=== PATIENT | male | born 1970 | race Caucasian/White ===

== ENCOUNTER 2022-12-01 13:00 | Emergency (ER) | payer MEDICAID ==
[~2022-12-01] VITALS: Ht 170.2 cm; Wt 75.5 kg
[2022-12-01 13:34] VITALS: BP 152/106
[2022-12-01] MEDS ORDERED: KETOROLAC 30 MG/ML VIAL IM ONE (14:25)
[2022-12-01] MEDS ORDERED: LIDOCAINE 5% 1 EA PATCH TP SCH (14:25)
[2022-12-01] MEDS ORDERED: ACET-10509 PO (14:50)
[2022-12-01] MEDS ORDERED: NAPR-1704 PO (14:50)
[2022-12-01] MEDS ORDERED: ACET-5629 PO (14:50)
[2022-12-01] MEDS ORDERED: LID5T TP (14:50)
[2022-12-01] MEDS ORDERED: DICL20GE TP (14:50)
[2022-12-01 15:20] VITALS: BP 132/89
== END 2022-12-01 15:20 | disposition home or self-care (01) ==
LOC: MED 13:00
DX: S49.91XA Unspecified injury of right shoulder and upper arm, initial encounter (principal); M65.231 Calcific tendinitis, right forearm; X58.XXXA Exposure to other specified factors, initial encounter; Y93.89 Activity, other specified; Y92.89 Other specified places as the place of occurrence of the external cause; Y99.8 Other external cause status
CPT/HCPCS: 29125; 73030; 73110; 96372; 99284; J1885

== ENCOUNTER 2022-12-15 12:37 | Emergency (ER) | payer MEDICAID ==
[~2022-12-15] VITALS: Ht 170.2 cm; Wt 73.5 kg
[~2022-12-15 12:37] MED LIST: ACET-10509 PO; ACET-5629 PO; DICL20GE TP; LID5T TP; NAPR-1704 PO
[2022-12-15 12:44] VITALS: BP 146/84
[2022-12-15] MEDS ORDERED: KETOROLAC 30 MG/ML VIAL IM ONE (13:55)
[2022-12-15] MEDS ORDERED: DICL20GE TP ×2 (13:57→14:00)
[2022-12-15] MEDS ORDERED: NAPR-1704 PO ×2 (13:57→14:00)
[2022-12-15 14:15] VITALS: BP 146/84
--- NOTE | 2022-12-15 14:15 | NUR ---
Patient discharged with v/s stable. Written and verbal after care instructions given and explained. Patient alert, oriented and verbalized understanding of instructions. Ambulatory with steady gait. All questions addressed prior to discharge. ID band removed. Patient advised to follow up with PMD. Rx of DEREK MENDEZ (SCRIPT) given. Patient educated on indication of medication including possible reaction and side effects. Opportunity to ask questions provided and answered.
== END 2022-12-15 14:15 | disposition home or self-care (01) ==
LOC: MED 12:37
DX: M19.011 Primary osteoarthritis, right shoulder (principal); Z79.899 Other long term (current) drug therapy; Z79.1 Long term (current) use of non-steroidal anti-inflammatories (NSAID)
CPT/HCPCS: 96372; 99283; J1885

== ENCOUNTER 2023-04-23 20:40 | Emergency (ER) | payer MEDICAID ==
[~2023-04-23] VITALS: Ht 185.4 cm; Wt 74.8 kg
--- NOTE | 2023-04-23 20:41 | NUR ---
pt. to bed 03
--- NOTE | 2023-04-23 20:45 | NUR ---
ERMD AT BEDSIDE EXAMINING PT
--- NOTE | 2023-04-23 21:00 | NUR ---
PATIENT PRESENTS TO ED WITH SYNCOPAL EPISODE. SON STATES PT DUNKED HIS HEAD IN AN ICE BATH AND FAINTED AFTER. DENIES N/V/D; SKIN IS PINK/WARM/DRY; GCS 15, AAOX4 WITH EVEN AND STEADY GAIT; HR EVEN AND REGULAR; PT DENIES ANY FEVER, CP, SOB, OR COUGH AT THIS TIME; PATIENT STATES PAIN OF 0/10 AT THIS TIME; VSS; PATIENT POSITIONED FOR COMFORT; HOB ELEVATED; BEDRAILS UP X2; BED DOWN. ER MD AWARE OF PT STATUS.
[2023-04-23 21:05] VITALS: BP 151/103; PULSE 91; RESP 13; TEMP 98; O2SAT 95
[2023-04-23 21:35] LABS: BASOPHILS % (AUTO) 0.2 % (0.0-2.0); EOSINOPHILS # (AUTO) 0.1 K/uL (0-0.4); EOSINOPHILS % (AUTO) 1.3 % (0.0-4.0); HEMATOCRIT 37.5 % (36-52); HEMOGLOBIN 13.2 g/dL (12.0-18.0); LYMPHOCYTES # (AUTO) 1.7 K/uL (2.0-11.5); LYMPHOCYTES % (AUTO) 31.4 % (20.5-51.1); MEAN CORPUSCULAR HEMOGLOBIN 31 pg (27-31); MEAN CORPUSCULAR HGB CONC 35 g/dL (33-37); MONOCYTES # (AUTO) 0.4 K/uL (0.8-1.0); MONOCYTES % (AUTO) 8.4 % (1.7-9.3); NEUTROPHILS # (AUTO) 3.1 K/uL (1.8-7.7); NEUTROPHILS % (AUTO) 58.7 % (42.2-75.2); PLATELET COUNT (AUTO) 224 K/uL (140-450); RED BLOOD CELL COUNT(AUTO) 4.26 MIL/uL (4.20-6.10); RED CELL DISTRIBUTION WIDTH 14.3 % (11.6-13.7); WHITE BLOOD COUNT (AUTO) 5.3 K/uL (4.8-10.8)
[2023-04-23 21:53] LABS: ALBUMIN 3.4 g/dL (3.4-5.0); ANION GAP 16.5 (8-16); ASPARTATE AMINOTRANSFERASE 15 U/L (15-37); CARBON DIOXIDE 23.2 mmol/L (21-32); CHLORIDE 107 mmol/L (98-107); CREATININE 0.8 mg/dL (0.6-1.3); GFR ARICAN-AMERICAN 130 mL/min (>90); GLUCOSE 118 mg/dL (74-106); POTASSIUM 3.7 mmol/L (3.5-5.1); SODIUM SERUM 143 mmol/L (136-145); TOTAL BILIRUBIN 0.2 mg/dL (0.0-1.0); UREA NITROGEN, BLOOD 17 mg/dL (7-18)
--- NOTE | 2023-04-23 22:13 | NUR ---
Dr. Patel examining patient.
[2023-04-23] MEDS ORDERED: ONDANSETRON 4 MG ODT PO ONE (22:25)
[2023-04-23] MEDS ORDERED: KETOROLAC 15 MG/ML VIAL IM ONE (22:25)
[2023-04-23] MEDS ORDERED: ONDA-188 SL (22:40)
== END 2023-04-23 23:25 | disposition home or self-care (01) ==
LOC: MED 20:40
DX: R55 Syncope and collapse (principal); I10 Essential (primary) hypertension; Z79.899 Other long term (current) drug therapy; Z79.1 Long term (current) use of non-steroidal anti-inflammatories (NSAID)
CPT/HCPCS: 36415; 71045; 80053; 84484; 85025; 93005; 96372; 99285; J1885; Q0162

== ENCOUNTER 2023-12-21 11:01 | Emergency (ER) | payer MEDICAID, OTHER ==
[~2023-12-21] VITALS: Ht 177.8 cm; Wt 70.3 kg
[~2023-12-21 11:01] MED LIST changes: +ONDA-188 SL
[2023-12-21 11:30] VITALS: BP 158/114; PULSE 80; RESP 18; TEMP 97.5; O2SAT 98
[2023-12-21 11:44] VITALS: TEMP 98.2
[2023-12-21] MEDS ORDERED: MIRABULK PO (12:10)
[2023-12-21] MEDS ORDERED: HYDR-2734 TP (12:10)
[2023-12-21 12:18] VITALS: BP 149/101; PULSE 72; RESP 16; O2SAT 98
[2023-12-21] MEDS ORDERED: ACET-9882 PO (12:18)
[2023-12-21] MEDS ORDERED: BENA20TA PO (12:43)
== END 2023-12-21 12:21 | disposition home or self-care (01) ==
LOC: MED 11:01
DX: K64.4 Residual hemorrhoidal skin tags (principal); I10 Essential (primary) hypertension; F10.90 Alcohol use, unspecified, uncomplicated; Z79.1 Long term (current) use of non-steroidal anti-inflammatories (NSAID); Z88.0 Allergy status to penicillin; Z79.899 Other long term (current) drug therapy
CPT/HCPCS: 99283